=== PATIENT | male | born 1940 | race Asian ===

== ENCOUNTER 2018-05-19 17:58 | Emergency (ER) | payer OTHER ==
[~2018-05-19] VITALS: Ht 162.6 cm; Wt 72.6 kg
[2018-05-19 18:06] VITALS: Ht 162.6 cm; Wt 72.6 kg
[2018-05-19 19:24] VITALS: BP 129/70
== END 2018-05-19 19:24 | disposition home or self-care (01) ==
LOC: ED 17:58
DX: S91.331A Puncture wound without foreign body, right foot, initial encounter (principal); E11.9 Type 2 diabetes mellitus without complications; Z95.810 Presence of automatic (implantable) cardiac defibrillator; Z91.041 Radiographic dye allergy status; W22.8XXA Striking against or struck by other objects, initial encounter; Y93.89 Activity, other specified; Y92.89 Other specified places as the place of occurrence of the external cause; Y99.8 Other external cause status
CPT/HCPCS: 90715; Q0092